=== PATIENT | male | born 1965 | race Caucasian/White ===

== ENCOUNTER 2019-04-17 16:49 | Observation (INO) ==
[2019-04-17] MEDS ORDERED: NS 1,000 ML IV ONE ×3 (17:10→21:26)
[2019-04-17] MEDS ORDERED: TORADOL IV ONE (17:12)
[2019-04-17] MEDS ORDERED: ZOFRAN IV ONE (17:12)
[2019-04-17] MEDS: NS 1,000 ML IV ONE (17:26)
[2019-04-17 17:34] LABS: BASO# 0.03 X1000 (0.0-0.2); BASO% 0.4 % (0.0-0.8); EOS# 0.25 X1000 (0.0-0.7); EOS% 3.6 % (0.0-10.0); HEMATOCRIT 38.6 % (42.0-52.0); HEMOGLOBIN 12.7 g/dL (14.0-18.0); LYMPH# 2.13 X1000 (1.2-3.4); LYMPH% 30.6 % (20.5-51.1); MCH 29.6 PG (27-31); MCHC 32.9 g/dL (33-37); MONO% 7.2 % (1.7-9.3); MPV 9.4 FL (7.4-10.4); NEUT# 4.05 X1000 (1.4-6.5); NEUT% 58.2 % (42.2-75.2); PLT 231 X1000 (130-400); RBC 4.29 XMIL (4.7-6.1); RDW 12.9 % (11.5-14.5); WBC 6.96 X1000 (4.8-10.8)
[2019-04-17 17:51] LABS: INR 0.94
[2019-04-17 17:52] LABS: PTT 24.1 Seconds (22.3-41.8)
[2019-04-17 18:03] LABS: AGAP 14; ALBUMIN 4.5 g/dL (3.5-5.0); ALKALINE PHOSPHATASE 67 U/L (32-122); BUN 9 mg/dL (8-22); CALCIUM 9.7 mg/dL (8.8-10.2); CHLORIDE 102 mmol/L (98-107); COSMO 286; ESTIMATED GFR > 60; GLUCOSE 182 mg/dL (70-104); GOT 33 U/L (10-34); GPT 29 U/L (10-44); POTASSIUM 3.7 mmol/L (3.5-5.1); SODIUM 142 mmol/L (136-145); TCO2 26 mmol/L (25-35); TOTAL PROTEIN 6.7 g/dL (6.3-8.3)
--- NOTE | 2019-04-17 18:52 | PROVIDER DOCUMENTATION ---
This chart was entered by Demetria Ontiveros Scribe, acting as scribe for Rangel Brown MD. HPI-Syncope/Dizziness - General Source: patient, family Unable to obtain history due to:: urgency - History of Present Illness-Syncope/Dizzy Prior Episodes: reports: recent history ( sts pt has had several of these episodes in the last month and has always had a low BP when it happens. pt is on HTN medication and DM) Onset/Duration: reports: just prior to arrival Timing: reports: intermittent Position/Activity at time of episode: reports: standing Symptoms prior to episode: reports: none Context: reports: lost consciousness, other (pt was hypotensive). denies: incontinent of urine, incontinent of stool, seizure activity observed Loss of Consciousness: brief (seconds) Location of injury. (If syncope resulted in an injury.): reports: head (occipital SANCHEZ) Current Symptoms: reports: sweaty, nausea, headache, pale, headache, blurred vision, lightheaded Recently Seen Here or By Another Healthcare Provider: No - Dizziness Severity in ED: reports: moderate Dizziness Related Current/Associated Symptoms: reports: nausea/vomiting, weakness, lightheaded, headache, pale, headache, blurred vision, syncope, other (hypotensive) Any recent trauma/injury?: reports: none Modifying Factors: worse with: changing position Patient usually:: reports: walks without assistance <Rangel Brown - Last Filed: 04/17/19 18:49> <Lore Valverde - Last Filed: 04/17/19 21:25> - General Chief Complaint: Syncope Stated Complaint: PASSED OUT Time Seen by Provider: 04/17/19 17:10 Allergies/Adverse Reactions: Patient Allergies Allergy/AdvReac Type Severity Reaction Status Date / Time No Known Allergies Allergy Verified 10/30/18 11:47 Home Medications: Home Medication List Medication Instructions Recorded Confirmed Last Taken Type Lisinopril 5 mg PO DAILY 07/19/14 04/17/19 10/29/18 10:00 History Metformin [Glucophage] 1,000 mg PO BID 07/19/14 04/17/19 10/29/18 22:00 History Methocarbamol [Robaxin-750] 750 mg PO TID PRN PRN 03/28/16 04/17/19 03/28/16 09:00 History Amitriptyline [Elavil] 25 mg PO HS 10/29/18 04/17/19 10/29/18 23:00 History Dulaglutide [Trulicity] 1.5 mg SQ FR 10/29/18 04/17/19 10/25/18 History Gabapentin 600 mg PO DAILY 10/29/18 04/17/19 10/30/18 10:00 History Insulin Degludec [Tresiba] 30 unit SQ DAILY 10/29/18 04/17/19 10/29/18 10:00 History Hydrocodone/APAP 10 mg/325 mg 1 ea PO Q4H PRN PRN 04/17/19 04/17/19 Unknown History [[place]-10] - History of Present Illness-Syncope/Dizzy Nature of Presenting Problem: 53 yowm presents to the ed via a wheelchair from upstairs where he was visiting a pt that is admitted. per pt was in a squatting position and when he went to stand pt became pale, diaphoretic, and had a syncopal episode. pt after they got him up had noted BP 49/30. pt has blurry vision, occipital SANCHEZ and pain in his coccyx region. pt is ill appearing on exam but presents a/o x3 and sts "I just dont feel good" (Rangel Brown) Review of Systems - Adult - REVIEW OF SYSTEMS - ADULT ROS:: ROS per family () Constitutional: denies: chills, fever Eyes: reports: see HPI, blurred vision Ears, Nose, Mouth & Throat: reports: no symptoms reported Cardiovascular: reports: no symptoms reported Respiratory: denies: shortness of breath, wheezing Gastrointestinal: reports: nausea. denies: abdominal pain, diarrhea, vomiting Genitourinary: reports: no symptoms reported Musculoskeletal: reports: see HPI, bone pain (coccyx pain), muscle weakness Integumentary: reports: no symptoms reported Neurological: reports: see HPI, dizziness/vertigo, headache/migraines, loss of balance, syncope. denies: slurred speech Psychiatric: reports: no symptoms reported Endocrine: reports: see HPI, excessive sweating Hematologic/Lymphatic: reports: no symptoms reported Allergic/Immunologic: reports: no symptoms reported All Other Systems: Reviewed and Negative <Rangel Brown - Last Filed: 04/17/19 18:49> Past History - Adult - PAST MEDICAL HISTORY-ADULT Review of Records: reports: Old Records Reviewed, Nursing Assessment Review, Medications Reviewed, Social history reviewed & non-contributory. Major Childhood Illnesses: reports: denies history Cardiovascular: reports: HTN, hyperlipidemia Respiratory: reports: sleep apnea Gastrointestinal: reports: GERD Genitourinary: reports: kidney stones Musculoskeletal: reports: denies history Hand Dominance: Right Handed Neurological: reports: denies history Psychiatric: reports: denies history Endocrine/Immune: reports: Diabetes Diabetes Type: Type 2 Diabetes controlled by:: PO Meds Other Conditions: reports: denies history - PRIOR SURGERIES/PROCEDURES Surgical/Procedure History: reports: other (kidney stones) - IMMUNIZATION STATUS Childhood Immunizations: See Nurse Assessment Flu Vaccine: See Nurse Assessment - FAMILY HISTORY Family History: reviewed, not pertinent - SOCIAL HISTORY Smoking: quit less than 1 year Substance Use: alcohol Alcohol Use Frequency: occasionally Living Situation: family <Rangel Brown - Last Filed: 04/17/19 18:49> Physical Exam-General - PHYSICAL EXAM-ADULT Initial Vital Signs Reviewed: Yes (BP-49/30 HR-92 O2 sat-90% RA) - CONSTITUTIONAL General Appearance: alert, moderate distress, obese, anxious - EYES Eyes: PERRL/EOMI - HEAD, EARS, NOSE, MOUTH & THROAT HENMT: moist mucous membranes - NECK Neck: non-tender, full range of motion, normal inspection - RESPIRATORY Respiratory: chest non-tender, lungs clear, normal breath sounds - CARDIOVASCULAR Cardiovascular: normal peripheral pulses, regular rate, rhythm - CHEST (BREASTS) Chest/Breast: deferred - GASTROINTESTINAL (ABDOMEN) Abdominal Exam: normal bowel sounds, non tender, soft - GENITOURINARY Male Genitalia: deferred Rectal Exam: deferred Hemoccult Exam: deferred - MUSCULOSKELETAL Back Exam: normal inspection, no CVA tenderness, no vertebral tenderness, other (coccyx pain from syncopal episode when standing) Extremity: other (syncope with METHODOLOGIST). negative: normal gait - SKIN Integumentary: diaphoresis, pallor. negative: normal color - NEUROLOGIC Neurologic: grossly normal - PSYCHIATRIC Psych/Mental Status: oriented x 3, anxious <Rangel Brown - Last Filed: 04/17/19 18:49> Progress - PLAN OF CARE/RESULTS Result Diagrams: 04/17/19 17:23 04/17/19 17:23 - REASSESSMENT Reassessment #1 Time Reassessed: 17:29 Status: unchanged (dr brown at bedside) Reassessment #2 Time Reassessed: 18:50 Status: improving (Given 2000 mL IVF and toradol/zofran. Awaiting CT head/c-s pelvis) - XRAY 1 XRAY: Bilateral XRAY Study: Chest Impression: See EMR Report - CHANGE OF SHIFT REPORT (ED Provider) 1 Report Given and Care Transferred to:: [facility] Time of Transfer: 19:00 Items Pending: CT/MRI Results, Other (normalization of BP) <Rangel Brown - Last Filed: 04/17/19 18:49> - PLAN OF CARE/RESULTS Result Diagrams: 04/17/19 17:23 04/17/19 17:23 - CONSULTS/PCP/HOSPITALIST Notification #1 *Consult/PCP/Hospitalist*: Dr Bailey Time Discussed: 21:23 Consult Disposition: Admit <Lore Valverde - Last Filed: 04/17/19 21:25> - PLAN OF CARE/RESULTS Progress/Plan/Lab Results: Vital Signs - 8 hr 04/17/19 16:52 04/17/19 19:16 04/17/19 20:03 Temperature 98 F Pulse Rate 92 H 109 H 113 H Respiratory Rate 20 19 12 Blood Pressure 49/30 93/41 113/62 O2 Sat by Pulse Oximetry 90 L 100 100 04/17/19 20:53 04/17/19 21:13 Temperature Pulse Rate 110 H 113 H Respiratory Rate 14 14 Blood Pressure 110/67 106/65 O2 Sat by Pulse Oximetry 97 96 Laboratory Results - last 24 hr 04/17/19 04/17/19 04/17/19 17:23 17:23 17:23 WBC 6.96 RBC 4.29 L Hgb 12.7 L Hct 38.6 L MCV 90.0 MCH 29.6 MCHC 32.9 L RDW Std Deviation 12.9 Plt Count 231 MPV 9.4 Immature Gran % (Auto) 0.0 Neut % (Auto) 58.2 Lymph % (Auto) 30.6 [place] % (Auto) 7.2 Eos % (Auto) 3.6 Baso % (Auto) 0.4 Immature Gran # (Auto) 0.00 Neut # (Auto) 4.05 Lymph # (Auto) 2.13 [place] # (Auto) 0.50 Eos # (Auto) 0.25 Baso # (Auto) 0.03 PT INR PTT (Actin FS) Sodium 142 Potassium 3.7 Chloride 102 Carbon Dioxide 26 Anion Gap 14 BUN 9 Creatinine 1.0 Estimated GFR/1.73 m2 > 60 BUN/Creatinine Ratio 9 Glucose 182 H POC Glucose Calculated Osmolality 286 Calcium 9.7 Total Bilirubin 0.30 AST 33 ALT 29 Alkaline Phosphatase 67 Troponin T < 0.010 Total Protein 6.7 Albumin 4.5 Globulin 2.0 Albumin/Globulin Ratio 2.0 Urine Source Urine Color Urine Clarity Urine pH Ur Specific [place] Urine Protein Urine Ketones Urine Blood Urine Nitrite Urine Bilirubin Urine Urobilinogen Urine Microscopic RBC Urine WBC Urine Microscopic WBC Ur Epithelial Cells Urine Crystals Urine Bacteria Urine Casts Urine Yeast Urine Glucose Urine Opiates Screen Ur Oxycodone Screen Urine Methadone Screen U Propoxyphene Qual Ur Barbituates Screen Ur Tricyclics Screen Ur Phencyclidine Scrn Ur Amphetamines Screen U Methamphetamines Scrn U Benzodiazepines Scrn Urine Cocaine Screen U Cannabinoids Screen 04/17/19 04/17/19 04/17/19 17:23 17:32 19:38 WBC RBC Hgb Hct MCV MCH MCHC RDW Std Deviation Plt Count MPV Immature Gran % (Auto) Neut % (Auto) Lymph % (Auto) [place] % (Auto) Eos % (Auto) Baso % (Auto) Immature Gran # (Auto) Neut # (Auto) Lymph # (Auto) [place] # (Auto) Eos # (Auto) Baso # (Auto) PT 13.0 INR 0.94 PTT (Actin FS) 24.1 Sodium Potassium Chloride Carbon Dioxide Anion Gap BUN Creatinine Estimated GFR/1.73 m2 BUN/Creatinine Ratio Glucose POC Glucose 159 H Calculated Osmolality Calcium Total Bilirubin AST ALT Alkaline Phosphatase Troponin T Total Protein Albumin Globulin Albumin/Globulin Ratio Urine Source Urine Color Urine Clarity Urine pH Ur Specific [place] Urine Protein Urine Ketones Urine Blood Urine Nitrite Urine Bilirubin Urine Urobilinogen Urine Microscopic RBC Urine WBC Urine Microscopic WBC Ur Epithelial Cells Urine Crystals Urine Bacteria Urine Casts Urine Yeast Urine Glucose Urine Opiates Screen NONE DETECTED Ur Oxycodone Screen NONE DETECTED Urine Methadone Screen NONE DETECTED U Propoxyphene Qual NONE DETECTED Ur Barbituates Screen NONE DETECTED Ur Tricyclics Screen PRESUMPTIVE POSITIVE A Ur Phencyclidine Scrn NONE DETECTED Ur Amphetamines Screen NONE DETECTED U Methamphetamines Scrn NONE DETECTED U Benzodiazepines Scrn NONE DETECTED Urine Cocaine Screen NONE DETECTED U Cannabinoids Screen NONE DETECTED 04/17/19 19:38 WBC RBC Hgb Hct MCV MCH MCHC RDW Std Deviation Plt Count MPV Immature Gran % (Auto) Neut % (Auto) Lymph % (Auto) [place] % (Auto) Eos % (Auto) Baso % (Auto) Immature Gran # (Auto) Neut # (Auto) Lymph # (Auto) [place] # (Auto) Eos # (Auto) Baso # (Auto) PT INR PTT (Actin FS) Sodium Potassium Chloride Carbon Dioxide Anion Gap BUN Creatinine Estimated GFR/1.73 m2 BUN/Creatinine Ratio Glucose POC Glucose Calculated Osmolality Calcium Total Bilirubin AST ALT Alkaline Phosphatase Troponin T Total Protein Albumin Globulin Albumin/Globulin Ratio Urine Source CLEAN CATCH Urine Color YELLOW Urine Clarity CLEAR Urine pH 5.0 Ur Specific [place] 1.020 Urine Protein 1+(30 mg/dL) A Urine Ketones TRACE Urine Blood NEGATIVE Urine Nitrite NEGATIVE Urine Bilirubin NEGATIVE Urine Urobilinogen NORMAL Urine Microscopic RBC <10 Urine WBC TRACE A Urine Microscopic WBC <10 Ur Epithelial Cells >10 A Urine Crystals CA OXALATE PRESENT Urine Bacteria 1+ Urine Casts NONE SEEN Urine Yeast NONE SEEN Urine Glucose TRACE(50 mg/dL) A Urine Opiates Screen Ur Oxycodone Screen Urine Methadone Screen U Propoxyphene Qual Ur Barbituates Screen Ur Tricyclics Screen Ur Phencyclidine Scrn Ur Amphetamines Screen U Methamphetamines Scrn U Benzodiazepines Scrn Urine Cocaine Screen U Cannabinoids Screen Orders Category Date Time Status Cardiac Monitoring DIRECTED Care 04/17/19 17:10 Active Finger Stick Blood Sugar (ED) DIRECTED Care 04/17/19 17:10 Active Oxygen Therapy- ED Nursing DIRECTED Care 04/17/19 17:10 Active Saline Loc NOW Care 04/17/19 17:10 Active CHEST-PORTABLE [RAD] Stat Exams 04/17/19 17:[address] HEAD/C-SPINE W/O CONTRAST [CT] Stat Exams 04/17/19 17:[address] PELVIS W/O CONTRAST [CT] Stat Exams 04/17/19 17:[address] T-SPINE/L-SPINE W/O CON [CT] Stat Exams 04/17/19 17:12 Completed CBC WITH ELECTRONIC DIFF [HEME] Stat Lab 04/17/19 17:23 Completed COMPREHENSIVE METABOLIC PANEL [CHEM] Stat Lab 04/17/19 17:23 Completed PROTIME WITH INR [COAG] Stat Lab 04/17/19 17:23 Completed PTT [COAG] Stat Lab 04/17/19 17:23 Completed TROPONIN T Stat Lab 04/17/19 17:[address] W/POSS RFLX CULT [URINALYSIS] Stat Lab 04/17/19 19:38 Completed URINE CULTURE [RM] Routine Lab 04/17/19 20:49 Or[address] DRUG SCREEN [address] Stat Lab 04/17/19 19:38 Completed 0.9% Sodium Chloride Inj [Ns] 1,000 ml Med 04/17/19 17:10 Discontinued IV 999 mls/hr 0.9% Sodium Chloride Inj [Ns] 1,000 ml Med 04/17/19 17:10 Discontinued IV 999 mls/hr Ketorolac [Toradol] Med 04/17/19 17:12 Discontinued 30 mg IV NOW ONE Ondansetron [Zofran] Med 04/17/19 17:12 Discontinued 4 mg IV NOW ONE EKG [EKG] Stat Ther 04/17/19 17:10 Draft Patient signed out to me pending reeval and labs and imaging. Patient syncopized upstairs with initial hypotension. He has been given 3 l in the ED here with still fluctuating BP. He only takes 5mg of lisinopril daily and occasional norco and gabapentin. Nothing else to really drop BP. I spoke to patient about OBS and they agreed. Spoke to Dr Cardoso who recommend IVF overnight and will see in maynor AM. Stable for floor with telemetry (Lore Valverde) Departure - Critical Care Note This patient required my direct & personal management of CC.: Yes Total Time (mins): 36 Critical Care Statement: This patient required my direct personal management to treat or rule out processes, the absence of which, could potentiallly result in sudden, clinically significant life or limb threatening deterioration. <Rangel Brown - Last Filed: 04/17/19 18:49> - Departure Date of Disposition Decision: 04/17/19 Time of Disposition Decision: 21:22 Certified Medical Emergency: Emergent <Lore Valverde - Last Filed: 04/17/19 21:25> - Departure DIAGNOSIS: Hypotension, Tachycardia Disposition: ADMITTED INPATIENT 09 Condition: Stable Referrals and Follow-Ups: Jaydon Duncan MD [Primary Care Provider] - Attestation - Physician/ JAMES Attestation Patient care was provided by Advanced Practice Provider:: No The physician spent face to face time with patient:: Yes Advanced Practice Provider documentation review:: Supervising physician onsite and consulted in the evaluation and care of this patient. The physician did have a face to face encounter with the patient. <Rangel Brown - Last Filed: 04/17/19 18:49> This chart was documented by the indicated scribe, (Demetria Ontiveros Scribe) and accurately reflects the services I performed and decisions made by Stephanie pineda Kent A., MD, as attested by the provider's signature.
--- NOTE | 2019-04-17 19:00 | Diag Imaging Result Doc PS360 ---
EXAM: CT HEAD/C-SPINE W/O CONTRAST 04/17/2019 HISTORY: head injury/pain TECHNIQUE: This exam was performed using automated exposure control, adjustment of mA or kV according to patient size, and/or use of iterative reconstruction technique. COMMENT: There is no evidence of mass effect, bleed, or abnormal extra-axial fluid collection. The calvarium is intact. The visualized paranasal sinuses are clear. Cervical spine: There is posterior osteophyte formation at the C6-7 level. There is no evidence of prevertebral soft tissue swelling. No fracture or subluxation is present. The facets are aligned. There is some osteophyte formation between the lamina and spinous processes of T1 and T2. IMPRESSION: No evidence of acute intracranial disease or acute bony abnormality in the cervical spine. Electronically signed by Cal Schneider 04/17/2019 6:58 PM
--- NOTE | 2019-04-17 19:09 | Diag Imaging Result Doc PS360 ---
EXAM: CT T-SPINE/L-SPINE W/O CON 04/17/2019 HISTORY: fall injury TECHNIQUE: This exam was performed using automated exposure control, adjustment of mA or kV according to patient size, and/or use of iterative reconstruction technique. COMMENT: Thoracic spine: There is some degenerative disc disease with osteophyte formation particularly at the T9-T10 and T8-9 levels. There is no evidence of fracture or subluxation. Lumbar spine: There is no evidence of fracture or subluxation. There is spinal stenosis at L3-4 and L4-5. IMPRESSION: No evidence of acute bony abnormality. Electronically signed by Cal Schneider 04/17/2019 7:06 PM
--- NOTE | 2019-04-17 19:12 | Diag Imaging Result Doc PS360 ---
EXAM: CT PELVIS W/O CONTRAST 04/17/2019 HISTORY: syncope/injury TECHNIQUE: This exam was performed using automated exposure control, adjustment of mA or kV according to patient size, and/or use of iterative reconstruction technique. COMMENT: There is vacuum joint phenomenon in the right sacroiliac joint. There is a bone island in the right ischial tuberosity. There is no evidence of fracture or dislocation. No abnormal fluid collections are demonstrated. IMPRESSION: No evidence of acute disease. Electronically signed by Cal Schneider 04/17/2019 7:10 PM
--- NOTE | 2019-04-17 19:22 | EKG Report ---
Test Performed on : 04/17/2019 5:15:30 PM Test Reason : syncope Blood Pressure : / mmHG Vent. Rate : 095 BPM Atrial Rate : 095 BPM P-R Int : 176 ms QRS Dur : 088 ms QT Int : 366 ms P-R-T Axes : 054 045 031 degrees QTc Int : 459 ms Normal sinus rhythm. Normal ECG When compared with ECG of 29-OCT-2018 11:11, No significant change was found Unconfirmed Result
--- NOTE | 2019-04-17 19:22 | Diag Imaging Result Doc PS360 ---
EXAM: CHEST-PORTABLE 04/17/2019 HISTORY: syncope TECHNIQUE: Erect AP portable at 1902 COMMENT: There is no evidence of acute cardiac or pulmonary disease. There are no previous studies. IMPRESSION: No acute disease. Electronically signed by Cal Schneider 04/17/2019 7:20 PM
[2019-04-17 20:45] LABS: BILIRUBIN URINE NEGATIVE (NEGATIVE); BLOOD URINE NEGATIVE (NEGATIVE); CLARITY CLEAR (CLEAR); COLOR YELLOW; KETONE URINE TRACE mg/dL (NEGATIVE); LEUKOCYTES URINE TRACE (NEGATIVE); NITRITE URINE NEGATIVE (NEGATIVE); PROTEIN URINE 1+(30 mg/dL) mg/dL (NEGATIVE); UROBILINOGEN URINE NORMAL
[2019-04-17 20:48] LABS: URINE SOURCE CLEAN CATCH
[2019-04-17 20:49] LABS: URINE BACTERIA 1+ /HFP; URINE CAST NONE SEEN /LPF; URINE CRYSTAL CA OXALATE PRESENT /HPF; URINE EPITHELIAL CELLS >10 /HPF (<10); URINE RBC <10 /HPF (<10); URINE WBC <10 /HPF (<10); URINE YEAST NONE SEEN /HPF
[2019-04-17 21:02] LABS: UR AMPHETAMINES QUAL NONE DETECTED (NONE DETECT); UR BARBITUATES QUAL NONE DETECTED (NONE DETECT); UR BENZODIAZEPIN QUAL NONE DETECTED (NONE DETECT)
[2019-04-17 21:03] LABS: UR CANNABINOIDS QUAL NONE DETECTED (NONE DETECT); UR COCAINE QUAL NONE DETECTED (NONE DETECT); UR METHADONE QUAL NONE DETECTED (NONE DETECT); UR METHAMPHETAMINE QUAL NONE DETECTED (NONE DETECT); UR OPIATES QUAL NONE DETECTED (NONE DETECT); UR OXYCODONE QUAL NONE DETECTED (NONE DETECT); UR PCP QUAL NONE DETECTED (NONE DETECT); UR PROPOXYPHENE QUAL NONE DETECTED (NONE DETECT); UR TCA QUAL PRESUMPTIVE POSITIVE (NONE DETECT)
[2019-04-17] MEDS ORDERED: TYLENOL PO PRN (23:06)
[2019-04-18] MEDS ORDERED: ROBAXIN PO PRN (08:48)
[2019-04-18] MEDS ORDERED: PATIENT'S OWN MED SUBQ SCH (09:00)
[2019-04-18] MEDS ORDERED: NEURONTIN PO SCH (09:00)
[2019-04-18] MEDS ORDERED: INSULIN PEN NEEDLES MISC PRN (09:04)
[2019-04-18 09:25] LABS: HEMATOCRIT 38.4 % (42.0-52.0); HEMOGLOBIN 12.2 g/dL (14.0-18.0); MCH 28.5 PG (27-31); MCHC 31.8 g/dL (33-37); MCV 89.7 FL (81-99); MPV 9.3 FL (7.4-10.4); RBC 4.28 XMIL (4.7-6.1); RDW 13.2 % (11.5-14.5); WBC 5.15 X1000 (4.8-10.8)
[2019-04-18 09:39] LABS: AGAP 10; ALBUMIN 3.9 g/dL (3.5-5.0); ALKALINE PHOSPHATASE 61 U/L (32-122); BUN 7 mg/dL (8-22); CHLORIDE 105 mmol/L (98-107); CHOLESTEROL 121 mg/dL (0-200); COSMO 281; CREATININE 0.7 mg/dL (0.7-1.2); ESTIMATED GFR > 60; GLUCOSE 100 mg/dL (70-104); GOT 26 U/L (10-34); GPT 23 U/L (10-44); HDL 30 mg/dL (35-55); LDL 51 mg/dL; MAGNESIUM 1.5 mg/dL (1.5-2.7); POTASSIUM 4.1 mmol/L (3.5-5.1); SODIUM 142 mmol/L (136-145); TCO2 27 mmol/L (25-35); TOTAL PROTEIN 6.2 g/dL (6.3-8.3); TRIGLYCERIDES 200 mg/dL (39-160); VLDL 40 mg/dL
[2019-04-18] MEDS ORDERED: INSULIN PEN NEEDLES ONE (09:52)
[2019-04-18] MEDS: TRESIBA FLEXTOUCH U-100 SUBQ SCH (09:56)
[2019-04-18] MEDS: NORCO-10 PO PRN ×3 (10:02→20:40)
[2019-04-18] MEDS: GLUCOPHAGE PO SCH ×2 (10:04→17:27)
--- NOTE | 2019-04-18 14:54 | HISTORY AND PHYSICAL ---
CHIEF COMPLAINT: Syncope. HISTORY OF PRESENT ILLNESS: This is a 53-year-old gentleman with a history of diabetes mellitus, hypertension and sleep apnea. He presents to the emergency room via wheelchair after having a syncopal episode while visiting someone on the medical-surgical floor. The states the patient was in a squatting position. He stood, he became pale, diaphoretic, and then passed out. Initial blood pressure was 49/30. He did complain of an occipital headache and pain in his coccyx region at this time. CT scan of the head and cervical spine revealed no evidence of acute intracranial disease or acute bony abnormality in the cervical spine. While in the emergency room, he was given 3 L of IV fluid. Blood pressure increased to the 105 to 113 over 60s range with heart rates that ranged 99 to 110, and he is being admitted for further evaluation and treatment. PAST MEDICAL HISTORY: Hypertension, diabetes mellitus type 2, obstructive sleep apnea. PAST SURGICAL HISTORY: Radiofrequency ablation of the left greater saphenous vein with phlebectomy of multiple varicose veins of the left leg x14 incisions in October 2018. SOCIAL HISTORY: He is , lives with his . He denies tobacco or illicit drug use. He does drink alcohol on rare occasions socially. ALLERGIES: No reported allergies. HOME MEDICATIONS: Elavil, Trulicity, gabapentin, [place], Tresiba, Lisinopril, Glucophage, Robaxin. REVIEW OF SYSTEMS: Discussed with the patient with pertinent positives stated in the HPI. He denied any dizziness, any chest pain or palpitations, any shortness of breath, cough, fever or chills, any vomiting, diarrhea, constipation, black or bloody vomitus or stools, any hematuria, dysuria, frequency and urgency. PHYSICAL EXAMINATION: GENERAL: This is a 53-year-old gentleman who is sitting up on the bed in no distress. VITAL SIGNS: Blood pressure is 107/65 with a heart rate of 99, respirations are 20, temperature is 97.8 degrees oral with room air saturations 99%. EYES: Pupils are equal, round, react to light. EOMs are intact. Sclerae are anicteric. HEENT: Head is normocephalic, atraumatic. Mucous membranes are moist. NECK: Supple with trachea midline. CARDIOVASCULAR: Regular rate and rhythm. S1 and S2 are appreciated. He has no lower extremity edema. Calves are nontender bilateral with peripheral pulses palpable x4 extremities. PULMONARY: Breath sounds are clear with no increased work of breathing noted. Chest rises and falls symmetrically with respiration. Chest wall is nontender to palpation. GASTROINTESTINAL: Abdomen is soft, nontender, nondistended with bowel sounds in all 4 quadrants. GENITOURINARY: No CVA or suprapubic tenderness. NEUROLOGIC: He is alert and oriented x3 with cranial nerves 2-12 grossly intact. SKIN: Warm and dry. LABORATORY DATA: WBC is 6.9 with hemoglobin 12.7, hematocrit 38.6, and platelets of 231,000. Sodium 142, potassium 3.7, BUN 9, creatinine 1 with a glucose of 182, troponin is negative. IMAGIN. Chest x-ray reveals no acute disease. 2. CT of the head and cervical spine. No evidence of acute intracranial disease or acute bony abnormality in the cervical spine. 3. CT of the pelvis reveals no evidence of acute disease. There is vacuum joint phenomenon in the right sacral iliac joint. There is a bone island in the right ischial tuberosity. There is no evidence of fracture or dislocation. 4. CT of the thoracic and lumbar spine. No evidence of fracture or subluxation. There is a spinal stenosis at L3-4 and L4-5 with degenerative disk disease with osteophyte formation, particularly at T9-T10 and T8-T9 levels. ASSESSMENT AND PLAN: 1. Syncope. The patient has been admitted to the medical-surgical floor, placed on telemetry which will continue. We will obtain orthostatic vital signs and echocardiogram. 2. Hypotension. This resolved after IV hydration. We will continue to monitor vital signs and we will hold his antihypertensives at present. 3. Tachycardia. In review of the patient's past records, he has been tachycardic in 90 to 110 during the hospitalization in October. We will continue to monitor his vital signs. 4. Diabetes mellitus type 2. We will continue his home medications. Continue with neuro checks. 5. Further treatments pending hospital course. The patient was examined and plan was discussed with Dr. Cardoso. Dictated by CODY Fall for Ander Cardoso MD cc: CODY Fall MD [facility]
[2019-04-18] MEDS: NEURONTIN PO SCH ×2 (17:57→20:35)
--- NOTE | 2019-04-18 19:28 | PROGRESS NOTE ---
DATE: 04/18/2019 SUBJECTIVE: Patient presented to the hospital after visiting family. He was already in the hospital. Apparently, he stood and became lightheaded. Blood pressures were very low initially at 50 systolic and then remained 90 and 100. We are going to admit him to the hospital, hold his blood pressure medication, lisinopril and will follow. Hopefully his symptoms will resolve and he can be discharged home. cc: Ander Cardoso MD
[2019-04-18] MEDS ORDERED: ELAVIL PO SCH (21:00)
[2019-04-19] MEDS: NEURONTIN PO SCH (08:50)
[2019-04-19] MEDS: TRESIBA FLEXTOUCH U-100 SUBQ SCH (08:51)
[2019-04-19] MEDS: GLUCOPHAGE PO SCH (08:51)
[2019-04-19 09:08] VITALS: BP 96/50
--- NOTE | 2019-04-19 21:28 | DISCHARGE SUMMARY ---
ADMISSION DATE: 04/17/2019 DISCHARGE DATE: 04/19/2019 PRIMARY CARE PHYSICIAN: Dr. Jaydon Duncan DIAGNOSES: 1. Syncope. 2. Hypotension resolved. 3. Tachycardia resolved. 4. Diabetes mellitus type 2. DIAGNOSTICS: 1. Chest x-ray revealed no acute disease. 2. CT of the head, no evidence of mass effect, bleed or abnormal extraaxial fluid collection. The calvarium is intact. The visualized paranasal sinuses are clear. 3. CT of the C-spine, no evidence of acute intracranial disease or acute bony abnormality in the cervical spine. 4. CT of the pelvis no evidence of acute disease. 5. CT of the thoracic and lumbar spine revealed some degenerative disk disease with osteophyte formation particularly in the T9-10 and T8-9 levels. There is no evidence of fracture or subluxation in the thoracic or lumbar spine. There is spinal stenosis at L3-4 and L4-5. 6. Urine culture revealed no growth. HOSPITAL COURSE: Mr. Patel presented to the emergency room after having a syncopal episode while standing from a squatting position. He fell, had back pain. CTs were performed which revealed no acute injury as stated above. He had no more syncopal episodes nor dizzy episodes while in the hospital. His blood pressure was 49/30 at the time of the episode, blood pressures have remained in the 98 to 113 over 60s range while in the hospital. He is not orthostatic by vital signs and thankfully he is ready for discharge. DISCHARGE VITAL SIGNS: Blood pressure is 103/61 with a heart rate of 96, respirations 16, temperature is 98.3 degrees oral with room air saturations 100%. DISCHARGE PHYSICAL EXAM: Cardiovascular: Regular rate and rhythm. S1 and S2 are appreciated. He has no lower extremity edema with peripheral pulses palpable x4 extremities. Calves are nontender bilateral. Pulmonary: Breath sounds are clear with no increased work of breathing noted. Chest rises and falls symmetric with respiration Gastrointestinal: Abdomen soft, nontender, nondistended with bowel sounds in all 4 quadrants. Neurologic: He is alert, oriented x3. Skin is warm and dry. DISCHARGE MEDICATIONS: 1. Robaxin 750 mg p.o. t.i.d. p.r.n. 2. Glucophage 1000 mg p.o. b.i.d. 3. Lisinopril 5 mg p.o. daily. 4. Tresiba 30 units subcu daily. 5. Halstad 10 one q.4 hours p.r.n. pain. 6. Gabapentin 600 mg p.o. at 9, 3 and 9. 7. Trulicity 1.5 mg subcu daily. 8. Elavil 25 mg p.o. at bedtime. FOLLOWUP: Dr. Jaydon Duncan. He is to call and schedule appointment in 1 to 2 weeks. He has been instructed to call to be seen sooner or return to the ER for any syncope, dizziness, chest pain, palpitations, shortness of breath, cough, temperature greater than 101, any nausea, vomiting, diarrhea, constipation, black or bloody vomitus or stools, hematuria, dysuria, frequency, urgency or for any questions, questions or concerns that he may have. He is being discharged home in stable condition with family members. TIME SPENT: Greater than 30 minutes. Dictated by CODY Fall for Ander Cardoso MD cc: MD Ander Gann MD [facility]
--- NOTE | 2019-04-20 04:08 | DISCHARGE SUMMARY ---
ADMISSION DATE: 04/17/2019 DISCHARGE DATE: 04/19/2019 ADDENDUM: Patient seen and examined by myself. Full note dictated and discussed with nurse practitioner. On discharge, patient is awake, alert. He is in no distress. He is able to ambulate back and forth to the restroom without any difficulties. He has had no further episodes of hypotension. We are going to discharge him home. We are going to continue to hold his blood pressure medications until he follows up with his primary care. cc: Ander Cardoso MD
== END 2019-04-19 10:07 | disposition home or self-care (01) ==
LOC: P.MEDSURG 16:49 → P.ED 16:49
PROVIDERS: ADMIT Family Medicine; ATTEND Family Medicine